=== PATIENT | male | born 1935 | race Caucasian/White ===

== ENCOUNTER 2018-01-02 15:11 | Inpatient (IN) | payer MEDICARE, OTHER ==
--- NOTE | 2018-01-02 16:40 | RAD ---
CHEST ONE VIEW: 01/02/18 HISTORY: Dyspnea. COMPARISON: 03/02/17. FINDINGS: The cardiac silhouette is magnified and upper limits of normal in size. Retrocardiac density has the appearance of the a hiatal hernia. Mediastinum is midline with aortic calcification. Lungs are hyperi nflated. Scattered areas of parenchymal scarring and calcified granulomata are again demonstrated. Th ere is no lobar consolidation or evidence of pneumothorax. Lateral costophrenic angles are excluded f rom the image. IMPRESSION: 1. Hiatal hernia, COPD, and borderline cardiomegaly. Chronic type findings appear stable. 2. Atherosclerosis. POS: HAYDEN
[2018-01-02 16:58] LABS: PTT 24.3 SEC (22.9-36.1); Prothrombin Time 13.5 SEC (12.0-14.7)
[2018-01-02 17:06] LABS: ALT (SGPT) 19 U/L (8-55); AST (SGOT) 28 U/L (5-34); Albumin 4.1 g/dL (3.4-4.8); Alkaline Phosphatase 144 U/L (40-150); Anion Gap 18 mmol/L (10-20); BUN (Urea Nitrogen) 20 mg/dL (8.4-25.7); Bilirubin, Total 0.7 mg/dL (0.2-1.2); CK (CPK) 106 U/L (30-200); Calc. Creatinine Clearance 0 mL/min (70-130); Calcium 9.6 mg/dL (7.8-10.44); Carbon Dioxide 21 mmol/L (23-31); Chloride 97 mmol/L (98-107); Estimated GFR-MDRD Greater than 90; Globulin 3.1 g/dL (2.4-3.5); Glucose 88 mg/dL (83-110); Potassium 4.7 mmol/L (3.5-5.1); Protein, Total 7.2 g/dL (5.8-8.1); Sodium 131 mmol/L (136-145)
[2018-01-02 17:10] LABS: Hemoglobin 14.2 g/dL (14.0-18.0); Mean Corpuscular HGB CONC 32.6 g/dL (32.0-36.0); Mean Corpuscular Hemoglobin 35.6 pg (27.0-31.0); Mean Platelet Volume 7.1 fL (7.4-10.4); Platelet Count 196 thou/uL (130-400); RBC Distribution Width 12.5 % (11.5-14.5); Red Blood Cell (RBC) Count 3.98 mill/uL (4.70-6.10); White Blood Cell (WBC) Count 9.2 thou/uL (4.8-10.8)
--- NOTE | 2018-01-02 17:19 | CT ---
CT BRAIN WITHOUT CONTRAST 01/02/18 HISTORY: Altered mental status. FINDINGS: Comparison is made with exam of 12/22/16. Changes of chronic small vessel ischemic disease are again seen. Cortical atrophy is stable. Ventricu lar size is stable and the basilar cisterns patent. No evidence of acute infarct, hemorrhage, midline shift or abnormal extra-axial fluid collections ar e seen. The bony calvarium is intact. The visualized paranasal sinuses and mastoids air cells are wel l aerated. IMPRESSION: Stable exam. No CT evidence of acute intracranial process. POS: HAYDENH
[2018-01-02 17:32] LABS: #Basophils 0.1 thou/uL (0.0-0.2); #Lymphocytes 1.7 thou/uL (1.20-3.40); #Monocytes 0.3 thou/uL (0.11-0.59); #Neutrophils 7.1 thou/uL (1.40-6.50); %Basophils 0.8 % (0.0-1.0); %Eosinophils 0.3 % (0.0-10.0); %Lymphocytes 18.5 % (21.0-51.0); %Neutrophils 77.4 % (42.0-75.0); Lymphocytes 9 % (21-51); MDiff Complete? YES; Monocytes 6 % (0-10); Neutrophil 85 % (42-75); PLT Morphology Comment Appears Adequate
[2018-01-02 17:34] LABS: CKMB 4.8 ng/mL (0-6.6); Troponin I 0.019 ng/mL (< 0.028)
[2018-01-02] MEDS ORDERED: hydrALAZINE 20 MG/ML VIAL ONE (18:44)
[2018-01-02 18:49] LABS: Bilirubin Small (Negative); Blood, Urine Large (Negative); Clarity CLOUDY (Clear); Glucose, Urine (Dipstick) Negative (Negative); Leukocyte Negative (Negative); Nitrite Negative (Negative); Protein, Urine (Dipstick) 30 mg/dL (Neg-Trace); Specific Gravity, Urine 1.027 (1.002-1.036)
[2018-01-02 18:51] LABS: Bacteria/HPF 1+ HPF (None Seen); Hyaline Casts/LPF 0-3 HYALINE CAST LPF (0-3 Hyaline); Pathc Cast-AUWi Flag 0.27 (0-2.49); RBC/HPF GREATER THAN 50-TNTC HPF (0-3)
[2018-01-02 19:03] LABS: Renal Epithelial None Seen HPF (0-3); Transitional Epithelial 0-3 HPF (0-3)
[2018-01-02] MEDS ORDERED: Ondansetron ODT 4 MG TAB SL PRN (21:47)
[2018-01-02] MEDS ORDERED: Sodium Chloride 0.9% 1,000 ML IV SCH (21:47)
[2018-01-02] MEDS ORDERED: Acetaminophen 325 MG TAB PO PRN ×2 (21:47→22:13)
[2018-01-02] MEDS ORDERED: Ondansetron HCl/PF 4 MG/2 ML Vial IVP PRN (21:47)
[2018-01-02] MEDS ORDERED: cefTRIAXone\\ROCEPHIN 1 GM in Sodium Chloride 0.9% 100 ML IVPB SCH (22:13)
[2018-01-02] MEDS ORDERED: hydrALAZINE 20 MG/ML VIAL SLOW IVP PRN (22:13)
[2018-01-02] MEDS ORDERED: Docusate 100 MG CAP PO SCH (22:30)
[2018-01-02] MEDS ORDERED: Famotidine/PF 20 mg/2ml Vial SLOW IVP SCH (22:30)
[2018-01-02] MEDS ORDERED: ALPRAZolam 0.25 MG TAB PO PRN (23:04)
[2018-01-02] MEDS: Sodium Chloride 0.9% 1,000 ML IV SCH (23:27)
--- NOTE | 2018-01-03 00:52 | HP ---
PRIMARY CARE PHYSICIAN: Dr. Duke Gallegos. CHIEF COMPLAINT: Altered mental status and decreased appetite, oral intake. HISTORY OF PRESENT ILLNESS: Taken primarily from review of the emergency room records thus the patie nt's family has since left and the patient is unable to give me any history. He apparently was broug ht to the hospital due to a decline in mental status. Apparently, he has some history of dementia an d has had some slow decline in function since October, but in the last 2 days it has been worse. It was noted that he has not been eating or drinking in the last couple of days. The ER physician tell s me that he normally can take pills, but when he was trying to take pills earlier, he was basically just kind biting at them like he did not know what to do them. It is also noted that his primary car e physician had been treating him for urinary tract infection about 2 days ago, other than that, is a bout all the history unable to obtain. When I ask the patient how he is doing, he says "just does no t feel good, and feels bad all over." When we tried to ask him to be more specific, he does indicate that he says that in his tummy and points to this midepigastric region. However, it is unclear whet her or not this is reliable or this may have been suggested by myself. Otherwise, no other history i s obtainable. REVIEW OF SYSTEMS: Unobtainable, due to the patient's apparent confusion. PAST MEDICAL HISTORY: Taken from previous record from a history and physical dated on 12/22/[address] Davila and includes transient ischemic attack, dementia, history of SIADH and hyponatremia, hypert ension, deconditioning, diastolic heart dysfunction, and COPD. PAST SURGICAL HISTORY: Includes hernia repair, cataract surgery, prostate surgery, and kyphoplasty. SOCIAL HISTORY: He is a former smoker. FAMILY HISTORY: No history of any known heritable diseases. ALLERGIES: SULFA, SHELLFISH, and TETRACYCLINE. CURRENT MEDICATIONS: These are currently unknown and will need to be reconciled. PHYSICAL EXAMINATION: GENERAL: He appears to be in some distress; however, it is unclear, if it is due to pain or anxiety or dyspnea. He is well-developed and well-nourished. VITAL SIGNS: Blood pressure was 184/90, heart rate 72, respiratory rate of 18, temperature is 97.5. HEENT: Pupils are equal, round, and reactive. Throat: There is no erythema, no exudates. NECK: No adenopathy, no bruits. LUNGS: Clear. No wheezing, no rales. CARDIOVASCULAR: He has a normal S1, S2. I did not appreciate an S3 or S4. No murmurs, clicks, or r ubs. ABDOMEN: Soft, nontender, nondistended. Positive for bowel sounds. EXTREMITIES: There is no edema. NEUROLOGIC: The exam is nonfocal. LABORATORY DATA: Urinalysis is significant for large blood, too numerous to count rbc's, white blood cells are from 11-20,000 and 1+ bacteria. Sodium 131, potassium 4.7, chloride is 97, CO2 is 21, BUN of 20, creatinine 0.74, glucose is 88. White blood cell count is 9.2, hemoglobin 14.2, hematocrit i s 43.5, platelet count is 196. On his chest x-ray is reported as having hiatal hernia, changes assoc iated with chronic obstructive pulmonary disease, otherwise stable. CT scan of the brain was negativ e for any acute intracranial process. ASSESSMENT AND PLAN: This is an 82-year-old gentleman that presents with decreased appetite and oral intake, apparent increase in confusion according to the family, and an elderly gentleman that has a history of some baseline dementia. He was reported to have been treated recently for urinary tract i nfection. It is likely that his symptoms represent a metabolic encephalopathy from a urinary tract i nfection, which has failed outpatient treatment. He will therefore be admitted and started on empiri c therapy for a urinary tract infection including Rocephin and Levaquin. A urine culture will be obt ained. Hopefully, we will obtain some healed; however, it is possible that it could be low yield due to him previously being on antibiotics. We will also get an abdominal ultrasound to look at his gal lbladder, see if there is any evidence of possible cholecystitis, although clinically this does not a ppear apparent. We will also need to reconcile and restart his home medications. Otherwise, no othe r recommendations at this time and further treatment will depend on his clinical course.
[2018-01-03] MEDS: cefTRIAXone\\ROCEPHIN 1 GM, Syringe 0.4 ML in Sterile Water 9.6 ML SLOW IVP SCH ×2 (00:59→20:58)
[2018-01-03 05:22] LABS: #Eosinphils 0.1 thou/uL (0.0-0.7); #Lymphocytes 1.4 thou/uL (1.20-3.40); #Monocytes 0.4 thou/uL (0.11-0.59); #Neutrophils 7.4 thou/uL (1.40-6.50); %Basophils 0.5 % (0.0-1.0); %Eosinophils 0.6 % (0.0-10.0); %Lymphocytes 14.8 % (21.0-51.0); %Monocytes 4.3 % (0.0-10.0); %Neutrophils 79.7 % (42.0-75.0); Hemoglobin 11.8 g/dL (14.0-18.0); Mean Corpuscular HGB CONC 32.5 g/dL (32.0-36.0); Mean Platelet Volume 7.7 fL (7.4-10.4); Platelet Count 186 thou/uL (130-400); RBC Distribution Width 12.5 % (11.5-14.5); Red Blood Cell (RBC) Count 3.39 mill/uL (4.70-6.10); White Blood Cell (WBC) Count 9.2 thou/uL (4.8-10.8)
[2018-01-03 05:31] LABS: Anion Gap 14 mmol/L (10-20); BUN (Urea Nitrogen) 16 mg/dL (8.4-25.7); Calc. Creatinine Clearance 60 mL/min (70-130); Calcium 8.9 mg/dL (7.8-10.44); Carbon Dioxide 23 mmol/L (23-31); Chloride 100 mmol/L (98-107); Estimated GFR-MDRD Greater than 90; Glucose 79 mg/dL (83-110); Potassium 3.9 mmol/L (3.5-5.1); Sodium 133 mmol/L (136-145)
[2018-01-03] MEDS: Famotidine/PF 20 mg/2ml Vial SLOW IVP SCH ×2 (08:43→20:59)
[2018-01-03] MEDS: Enoxaparin Sodium 40 MG/0.4 ML SYRINGE SC SCH (08:43)
--- NOTE | 2018-01-03 09:18 | ULT ---
ULTRASOUND ABDOMEN: HISTORY: Poor appetite. COMPARISON: None. FINDINGS: Visualized aorta is normal as well as the IVC. Visualized portions of the pancreas are unr emarkable. The liver measures 13 cm in length. In the right lobe of the liver anteriorly but in the capsule is a 1 cm hyperechoic focus. The spleen measures 9 x 3.4 x 3.6 cm. Gallbladder wall thickness is normal. The right kidney measures 9.8 x 3.9 x 4.8 cm with mild hydroureteral nephrosis. The left kidney jt ures 10.7 x 4.9 x 4.1 cm also with mild left-sided hydroureteral nephrosis. IMPRESSION: 1. Mild bilateral hydroureteronephrosis may be sequelae of distal obstructing process. A CT of the abdomen and pelvis may be helpful. 2. A 1 cm hyperechoic focus in the right lobe of the liver abutting the capsule. This may reflect h emangioma, although it is incompletely evaluated. A 3-phase liver CT may be beneficial to help delin eate this finding. No prior CTs of the abdomen or pelvis are seen on the patient's comparison jacket . CODE T POS: OFF
[2018-01-03 12:10] VITALS: BMI 19.2
[2018-01-03] MEDS: Docusate 100 MG CAP PO SCH ×2 (12:49→21:05)
[2018-01-03] MEDS: Sodium Chloride 0.9% 1,000 ML IV SCH (12:54)
--- NOTE | 2018-01-03 14:36 | PDOC.PN ---
- Subjective Encounter Start Date: 01/03/18 Encounter Start Time: 14:35 Mr. Patel was seen today in follow-up. He does not have any complaints other than he wants to be left alone - Objective MAR Reviewed: Yes Result Diagrams: 01/03/18 04:16 01/03/18 04:16 Phys Exam - Physical Examination HEENT: PERRLA Respiratory: no wheezing, no rales, no rhonchi, clear to auscultation bilateral Cardiovascular: RRR, no significant murmur Gastrointestinal: soft, non-tender, positive bowel sounds Musculoskeletal: no edema Dx/Plan (1) Metabolic encephalopathy Code(s): G93.41 - METABOLIC ENCEPHALOPATHY Status: Acute (2) UTI (urinary tract infection) Status: Acute (3) Hyponatremia Code(s): E87.1 - HYPO-OSMOLALITY AND HYPONATREMIA Status: Acute Comment: SIADH (4) COPD (chronic obstructive pulmonary disease) Status: Chronic (5) Hypertension Code(s): I10 - ESSENTIAL (PRIMARY) HYPERTENSION Status: Chronic (6) Vascular dementia Code(s): F01.50 - VASCULAR DEMENTIA WITHOUT BEHAVIORAL DISTURBANCE Status: Chronic - Plan * Metabolic Encephalopathy- continue IV antibiotics * Urine culture is negative so far * HTN- blood pressure is a bit elevated- will re-start his home medications * COPD- re-start medications for COPD * Poor oral intake- I suspect some of his symptoms could be due to depression - he is already on Paxil, will increase the dose a bit * Consult Case Management for placement.
[2018-01-03] MEDS: Midodrine HCl 5 MG TAB PO SCH ×2 (17:51→21:05)
[2018-01-03] MEDS: Arformoterol 15 MCG/2 ML NEB NEB SCH (19:18)
[2018-01-03] MEDS: Donepezil HCl 5 MG TAB PO SCH (21:05)
[2018-01-03] MEDS: Aggrenox 200-25mg CAP PO SCH (21:05)
[2018-01-04] MEDS: Sodium Chloride 0.9% 1,000 ML IV SCH ×2 (04:22→17:48)
[2018-01-04] MEDS ORDERED: PARoxetine 20 MG TAB PO SCH (09:00)
[2018-01-04] MEDS: Aggrenox 200-25mg CAP PO SCH ×2 (09:06→20:32)
[2018-01-04] MEDS: PARoxetine 20 MG TAB PO SCH (09:08)
[2018-01-04] MEDS: Aspirin 81 mg Enteric Coated Tablet PO SCH (09:09)
[2018-01-04] MEDS: Docusate 100 MG CAP PO SCH ×2 (09:09→20:33)
[2018-01-04] MEDS: Multivitamin W/ Minerals 1 TAB PO SCH (09:09)
[2018-01-04] MEDS: Famotidine/PF 20 mg/2ml Vial SLOW IVP SCH ×2 (09:10→20:33)
[2018-01-04] MEDS: Midodrine HCl 5 MG TAB PO SCH ×3 (09:11→20:33)
[2018-01-04] MEDS: Enoxaparin Sodium 40 MG/0.4 ML SYRINGE SC SCH (09:11)
[2018-01-04] MEDS: Arformoterol 15 MCG/2 ML NEB NEB SCH ×2 (10:54→18:39)
--- NOTE | 2018-01-04 15:59 | PDOC.PN ---
- Subjective Encounter Start Date: 01/04/18 Encounter Start Time: 15:57 was seen in follow-up. He says he is feeling a little better today. - Objective MAR Reviewed: Yes Vital Signs & Weight: Vital Signs (12 hours) Temp Pulse Resp BP Pulse Ox 01/04/18 15:07 139/72 01/04/18 13:50 97 16 96 01/04/18 11:00 98.6 F 95 20 173/90 H 94 L 01/04/18 10:54 86 16 95 01/04/18 08:00 97.9 F 108 H 18 163/75 H 88 L 01/04/18 07:23 78 15 97 I&O: 01/03/18 01/04/18 01/05/18 06:59 06:59 06:59 Intake Total 1825 Balance 1825 Result Diagrams: 01/03/18 04:16 01/03/18 04:16 Phys Exam - Physical Examination HEENT: PERRLA Respiratory: no wheezing, no rales, no rhonchi, clear to auscultation bilateral Cardiovascular: RRR, no significant murmur Gastrointestinal: soft, non-tender, positive bowel sounds Musculoskeletal: no edema Dx/Plan (1) Metabolic encephalopathy Code(s): G93.41 - METABOLIC ENCEPHALOPATHY Status: Acute (2) UTI (urinary tract infection) Status: Acute (3) Hyponatremia Code(s): E87.1 - HYPO-OSMOLALITY AND HYPONATREMIA Status: Acute Comment: SIADH (4) COPD (chronic obstructive pulmonary disease) Status: Chronic (5) Hypertension Code(s): I10 - ESSENTIAL (PRIMARY) HYPERTENSION Status: Chronic (6) Vascular dementia Code(s): F01.50 - VASCULAR DEMENTIA WITHOUT BEHAVIORAL DISTURBANCE Status: Chronic - Plan * UTI- urine culture is negative- can discontinue antibiotics * Continue to encourage increased oral intake * Depression- Paxil was increased to 30mg a day * Patient is awaiting fdc placement.
[2018-01-04] MEDS ORDERED: Clopidogrel Bisulfate 75 MG TAB ONE (18:47)
[2018-01-04] MEDS: Donepezil HCl 5 MG TAB PO SCH (20:32)
[2018-01-04] MEDS: cefTRIAXone\\ROCEPHIN 1 GM, Syringe 0.4 ML in Sterile Water 9.6 ML SLOW IVP SCH (22:57)
[2018-01-05] MEDS ORDERED: Tamsulosin HCl 0.4 MG CAP PO SCH (02:45)
--- NOTE | 2018-01-05 02:47 | PDOC.EVN ---
Event Note - Event Note Event Note: RN called - Post void >400. Will try Flomax/Finasteride. Abd USG noted. Advised RN to cont Postvoid Q6hr & notify in AM
[2018-01-05] MEDS: Sodium Chloride 0.9% 1,000 ML IV SCH (07:25)
[2018-01-05] MEDS: Finasteride 5 MG TAB PO SCH (09:00)
[2018-01-05] MEDS: Arformoterol 15 MCG/2 ML NEB NEB SCH ×2 (09:38→19:40)
--- NOTE | 2018-01-05 09:56 | PDOC.PN ---
- Subjective Encounter Start Date: 01/05/18 Encounter Start Time: 09:56 Mr. Patel was seen in follow-up. He does not have any complaints. He appears comfortable. - Objective MAR Reviewed: Yes Vital Signs & Weight: Vital Signs (12 hours) Temp Pulse Resp BP Pulse Ox 01/05/18 07:49 98.8 F 95 18 145/81 H 92 L 01/05/18 06:19 85 16 94 L 01/05/18 00:35 81 16 161/72 H 92 L 01/04/18 22:00 95 16 I&O: 01/04/18 01/05/18 01/06/18 06:59 06:59 06:59 Intake Total 1825 1320 Balance 1825 1320 Result Diagrams: 01/03/18 04:16 01/03/18 04:16 Phys Exam - Physical Examination HEENT: PERRLA Respiratory: no wheezing, no rales, no rhonchi, clear to auscultation bilateral Cardiovascular: RRR, no significant murmur Gastrointestinal: soft, non-tender, positive bowel sounds Musculoskeletal: no edema Dx/Plan (1) Metabolic encephalopathy Code(s): G93.41 - METABOLIC ENCEPHALOPATHY Status: Acute (2) UTI (urinary tract infection) Status: Acute (3) Hyponatremia Code(s): E87.1 - HYPO-OSMOLALITY AND HYPONATREMIA Status: Acute Comment: SIADH (4) COPD (chronic obstructive pulmonary disease) Status: Chronic (5) Hypertension Code(s): I10 - ESSENTIAL (PRIMARY) HYPERTENSION Status: Chronic (6) Vascular dementia Code(s): F01.50 - VASCULAR DEMENTIA WITHOUT BEHAVIORAL DISTURBANCE Status: Chronic - Plan * Metabolic encephalopathy- improved * Dementia- stable * Depression in Dementia- Paxil has been increase * Continue to encourage oral intake * Awaiting placement.
[2018-01-05] MEDS: Aggrenox 200-25mg CAP PO SCH ×2 (10:38→21:49)
[2018-01-05] MEDS: Multivitamin W/ Minerals 1 TAB PO SCH (10:38)
[2018-01-05] MEDS: PARoxetine 20 MG TAB PO SCH (10:39)
[2018-01-05] MEDS: Midodrine HCl 5 MG TAB PO SCH ×3 (10:39→21:47)
[2018-01-05] MEDS: Enoxaparin Sodium 40 MG/0.4 ML SYRINGE SC SCH (10:40)
[2018-01-05] MEDS: Famotidine/PF 20 mg/2ml Vial SLOW IVP SCH (10:40)
[2018-01-05] MEDS: Aspirin 81 mg Enteric Coated Tablet PO SCH (10:40)
[2018-01-05] MEDS: Docusate 100 MG CAP PO SCH ×2 (10:43→21:48)
[2018-01-05] MEDS: Donepezil HCl 5 MG TAB PO SCH (21:47)
[2018-01-05] MEDS: Famotidine 20 MG TAB PO SCH (21:47)
[2018-01-05] MEDS: Tamsulosin HCl 0.4 MG CAP PO SCH (21:47)
[2018-01-05] MEDS: cefTRIAXone\\ROCEPHIN 1 GM, Syringe 0.4 ML in Sterile Water 9.6 ML SLOW IVP SCH (22:30)
[2018-01-06] MEDS: Arformoterol 15 MCG/2 ML NEB NEB SCH ×2 (07:52→18:39)
[2018-01-06] MEDS: Multivitamin W/ Minerals 1 TAB PO SCH (08:47)
[2018-01-06] MEDS: Aggrenox 200-25mg CAP PO SCH ×3 (08:48→21:09)
[2018-01-06] MEDS: PARoxetine 20 MG TAB PO SCH (08:49)
[2018-01-06] MEDS: Midodrine HCl 5 MG TAB PO SCH ×3 (08:50→21:10)
[2018-01-06] MEDS: Docusate 100 MG CAP PO SCH ×2 (08:53→21:09)
[2018-01-06] MEDS: Enoxaparin Sodium 40 MG/0.4 ML SYRINGE SC SCH (08:53)
[2018-01-06] MEDS: Aspirin 81 mg Enteric Coated Tablet PO SCH (08:53)
[2018-01-06] MEDS: Famotidine 20 MG TAB PO SCH ×2 (08:53→21:09)
[2018-01-06] MEDS: Finasteride 5 MG TAB PO SCH (11:30)
--- NOTE | 2018-01-06 13:45 | PDOC.PN ---
- Subjective Encounter Start Date: 01/06/18 Encounter Start Time: 13:43 Mr. Patel was seen today in follow-up. He appears comfortable. He is sitting up in bed smiling and conversation is pleasant. - Objective MAR Reviewed: Yes Vital Signs & Weight: Vital Signs (12 hours) Temp Pulse Resp BP Pulse Ox 01/06/18 08:00 98 F 89 16 01/06/18 07:53 89 16 98 01/06/18 07:52 89 16 98 01/06/18 07:33 98.0 F 94 18 174/88 H 92 L 01/06/18 04:04 97 Weight Admit Weight 110 lb 3.2 oz Weight 112 lb 3.2 oz I&O: 01/05/18 01/06/18 01/07/18 06:59 06:59 06:59 Intake Total 1320 600 Output Total 1389 Balance 1320 -789 Result Diagrams: 01/03/18 04:16 01/03/18 04:16 Phys Exam - Physical Examination HEENT: PERRLA Respiratory: no wheezing, no rales, no rhonchi, clear to auscultation bilateral Cardiovascular: RRR, no significant murmur Gastrointestinal: soft, non-tender, positive bowel sounds Musculoskeletal: no edema Dx/Plan (1) Metabolic encephalopathy Code(s): G93.41 - METABOLIC ENCEPHALOPATHY Status: Acute (2) UTI (urinary tract infection) Status: Acute (3) Hyponatremia Code(s): E87.1 - HYPO-OSMOLALITY AND HYPONATREMIA Status: Acute Comment: SIADH (4) COPD (chronic obstructive pulmonary disease) Status: Chronic (5) Hypertension Code(s): I10 - ESSENTIAL (PRIMARY) HYPERTENSION Status: Chronic (6) Vascular dementia Code(s): F01.50 - VASCULAR DEMENTIA WITHOUT BEHAVIORAL DISTURBANCE Status: Chronic - Plan * Metabolic encephalopathy- resolved * UTI- resolved * Depression- appears to be a little improved with increased dose of Paxil * Continue to encourage oral inake * Continue PT/OT * Awaiting retirement placement.
[2018-01-06] MEDS: Donepezil HCl 5 MG TAB PO SCH (21:09)
[2018-01-06] MEDS: Tamsulosin HCl 0.4 MG CAP PO SCH (21:09)
[2018-01-07] MEDS ORDERED: hydrALAZINE 10 MG TAB PO PRN (00:37)
[2018-01-07] MEDS: cefTRIAXone\\ROCEPHIN 1 GM, Syringe 0.4 ML in Sterile Water 9.6 ML SLOW IVP SCH (01:43)
[2018-01-07] MEDS: Arformoterol 15 MCG/2 ML NEB NEB SCH ×2 (06:52→22:17)
[2018-01-07] MEDS: Aggrenox 200-25mg CAP PO SCH ×2 (08:40→21:05)
[2018-01-07] MEDS: Enoxaparin Sodium 40 MG/0.4 ML SYRINGE SC SCH (08:40)
[2018-01-07] MEDS: Midodrine HCl 5 MG TAB PO SCH ×3 (08:43→21:05)
[2018-01-07] MEDS: PARoxetine 20 MG TAB PO SCH (08:45)
[2018-01-07] MEDS: Famotidine 20 MG TAB PO SCH ×2 (08:45→21:05)
[2018-01-07] MEDS: Aspirin 81 mg Enteric Coated Tablet PO SCH (08:48)
[2018-01-07] MEDS: Multivitamin W/ Minerals 1 TAB PO SCH (08:48)
[2018-01-07] MEDS: Finasteride 5 MG TAB PO SCH (08:49)
[2018-01-07] MEDS: Docusate 100 MG CAP PO SCH ×2 (08:50→21:05)
--- NOTE | 2018-01-07 12:02 | PDOC.PN ---
- Subjective Encounter Start Date: 01/07/18 Encounter Start Time: 11:59 Mr. Patel was seen today in follow-up. When asked how's he doing he tells me " I 'm Here". He does not have any specific complaints. His nurse notes that he was a bit agitated, and refused his morning medications. - Objective MAR Reviewed: Yes Vital Signs & Weight: Vital Signs (12 hours) Temp Pulse Resp BP BP Pulse Ox 01/07/18 08:36 98.4 F 92 18 181/91 H 90 L 01/07/18 08:00 98.4 F 92 18 01/07/18 06:50 75 16 94 L 01/07/18 06:22 85 181/91 H 01/07/18 04:00 85 177/90 H 01/07/18 02:51 85 181/91 H Weight Admit Weight 110 lb 3.2 oz Weight 112 lb 3.2 oz I&O: 01/06/18 01/07/18 01/08/18 06:59 06:59 06:59 Intake Total 600 240 Output Total 1389 Balance -789 240 Result Diagrams: 01/03/18 04:16 01/03/18 04:16 Phys Exam - Physical Examination HEENT: PERRLA Respiratory: no wheezing, no rales, no rhonchi Cardiovascular: RRR, no significant murmur Gastrointestinal: soft, non-tender, positive bowel sounds Musculoskeletal: no edema Dx/Plan (1) Metabolic encephalopathy Code(s): G93.41 - METABOLIC ENCEPHALOPATHY Status: Acute (2) UTI (urinary tract infection) Status: Acute (3) Hyponatremia Code(s): E87.1 - HYPO-OSMOLALITY AND HYPONATREMIA Status: Acute Comment: SIADH (4) COPD (chronic obstructive pulmonary disease) Status: Chronic (5) Hypertension Code(s): I10 - ESSENTIAL (PRIMARY) HYPERTENSION Status: Chronic (6) Vascular dementia Code(s): F01.50 - VASCULAR DEMENTIA WITHOUT BEHAVIORAL DISTURBANCE Status: Chronic - Plan * UTI- resolved * Metabolic Encephalopathy- improved * Dementia- stable * Depression continue Paxil * Awaiting placement.
[2018-01-07] MEDS ORDERED: Amlodipine 5 MG TAB PO SCH (14:00)
[2018-01-07] MEDS: Donepezil HCl 5 MG TAB PO SCH (21:05)
[2018-01-07] MEDS: Tamsulosin HCl 0.4 MG CAP PO SCH (21:05)
[2018-01-08] MEDS: Arformoterol 15 MCG/2 ML NEB NEB SCH ×2 (07:42→18:47)
[2018-01-08] MEDS: Enoxaparin Sodium 40 MG/0.4 ML SYRINGE SC SCH (09:28)
[2018-01-08] MEDS: Aspirin 81 mg Enteric Coated Tablet PO SCH (09:29)
[2018-01-08] MEDS: PARoxetine 20 MG TAB PO SCH (09:29)
[2018-01-08] MEDS: Finasteride 5 MG TAB PO SCH (09:30)
[2018-01-08] MEDS: Docusate 100 MG CAP PO SCH ×2 (09:30→20:54)
[2018-01-08] MEDS: Amlodipine 5 MG TAB PO SCH (09:30)
[2018-01-08] MEDS: Famotidine 20 MG TAB PO SCH ×2 (09:32→20:54)
[2018-01-08] MEDS: Multivitamin W/ Minerals 1 TAB PO SCH (09:32)
[2018-01-08] MEDS: Midodrine HCl 5 MG TAB PO SCH ×3 (09:32→20:54)
[2018-01-08] MEDS: Aggrenox 200-25mg CAP PO SCH ×2 (09:37→20:54)
--- NOTE | 2018-01-08 14:44 | PDOC.PN ---
- Subjective Encounter Start Date: 01/08/18 Encounter Start Time: 14:42 Mr. Patel was seen today in follow-up. He has been sleepy most of the day. His oral intake has been marginal. - Objective MAR Reviewed: Yes Vital Signs & Weight: Vital Signs (12 hours) Pulse Resp Pulse Ox 01/08/18 09:30 90 01/08/18 07:42 90 15 98 01/08/18 07:21 80 15 95 Weight Admit Weight 110 lb 3.2 oz Weight 112 lb 3.2 oz I&O: 01/07/18 01/08/18 01/09/18 06:59 06:59 06:59 Intake Total 240 480 Balance 240 480 Result Diagrams: 01/03/18 04:16 01/03/18 04:16 Phys Exam - Physical Examination HEENT: PERRLA Respiratory: no wheezing, no rales, no rhonchi, clear to auscultation bilateral Cardiovascular: RRR, no significant murmur, no rub Gastrointestinal: soft, non-tender, positive bowel sounds Musculoskeletal: no edema Dx/Plan (1) Metabolic encephalopathy Code(s): G93.41 - METABOLIC ENCEPHALOPATHY Status: Acute (2) UTI (urinary tract infection) Status: Acute (3) Hyponatremia Code(s): E87.1 - HYPO-OSMOLALITY AND HYPONATREMIA Status: Acute Comment: SIADH (4) COPD (chronic obstructive pulmonary disease) Status: Chronic (5) Hypertension Code(s): I10 - ESSENTIAL (PRIMARY) HYPERTENSION Status: Chronic (6) Vascular dementia Code(s): F01.50 - VASCULAR DEMENTIA WITHOUT BEHAVIORAL DISTURBANCE Status: Chronic - Plan * Metabolic Encephalopathy- improved * UTI- resolved * Poor oral intake- suspected due to Dementia, and Depression- Paxil has been increased, and will add Megace as well * Continue PT/OT * Awaiting Intermediate transfer.
[2018-01-08] MEDS: Tamsulosin HCl 0.4 MG CAP PO SCH (20:54)
[2018-01-08] MEDS: Donepezil HCl 5 MG TAB PO SCH (20:54)
[2018-01-09 07:38] VITALS: BP 147/83
[2018-01-09] MEDS: Amlodipine 5 MG TAB PO SCH (08:20)
[2018-01-09] MEDS: Enoxaparin Sodium 40 MG/0.4 ML SYRINGE SC SCH (08:20)
[2018-01-09] MEDS: PARoxetine 20 MG TAB PO SCH (08:21)
[2018-01-09] MEDS: Aspirin 81 mg Enteric Coated Tablet PO SCH (08:21)
[2018-01-09] MEDS: Docusate 100 MG CAP PO SCH (08:21)
[2018-01-09] MEDS: Multivitamin W/ Minerals 1 TAB PO SCH (08:21)
[2018-01-09] MEDS: Midodrine HCl 5 MG TAB PO SCH ×2 (08:22→14:54)
[2018-01-09] MEDS: Famotidine 20 MG TAB PO SCH (08:22)
[2018-01-09] MEDS: Arformoterol 15 MCG/2 ML NEB NEB SCH (08:23)
[2018-01-09] MEDS: Aggrenox 200-25mg CAP PO SCH (08:26)
[2018-01-09] MEDS: Finasteride 5 MG TAB PO SCH (08:26)
[2018-01-09 10:37] VITALS: TEMP 98.3
--- NOTE | 2018-01-09 13:50 | DIS ---
PRIMARY CARE PHYSICIAN: Duke Gallegos M.D. DATE OF ADMISSION: 01/02/2018 DATE OF DISCHARGE: 01/09/2018 DISCHARGE DIAGNOSES: 1. Metabolic encephalopathy. 2. Urinary tract infection. 3. Dementia without behavioral disturbance. 4. Major depressive disorder. 5. Failure to thrive. 6. Moderate to severe protein-calorie malnutrition. 7. Physical deconditioning. 8. Chronic obstructive pulmonary disease without acute exacerbation. 9. Essential hypertension. CONSULTATIONS: None. PROCEDURES: None. HISTORY AND PHYSICAL: Mr. Patel is a 89-year-old white male, brought into the emergency department d ue to altered mental status, decreased appetite, and decline. The patient has dementia and was functioning and decreasing on a regular basis since October, but nunez s been worse 2 days prior to admission. He was brought to the emergency department for evaluation. Not eating or drinking, but was unable to take his pills any longer. On evaluation, urinalysis showed too numerous to count red blood cells, 11-20 white blood cells, 1+ b acteria, and sodium is 131. We were subsequently called for admission. HOSPITAL COURSE: The patient was seen and examined by Dr. Escobar. He was placed inpatient and start ed on antibiotics and IV fluids. Initially he was receiving Rocephin and Levaquin. Abdominal ultras ound was obtained to look at the gallbladder due to increased LFTs. Overnight, the patient did well. Ultrasound was negative and by 01/03/2018, the patient was not havi ng complaints other than wanting to be left alone. Overall, seemed a little bit improved and certain ly stable. software development project manager was consulted for placement issues. On 01/04/2018, the patient was feeling a little better. Urine culture was negative and antibiotics w ere stopped. He was encouraged to take p.o. intake. PT/OT consults were ordered. Overnight, the patient had a postvoid residual of 400. Flomax and finasteride were ordered and the p atient had a heart catheterization and otherwise did well. From 01/05 to 01/08, the patient slowly improved. He was eating better when I encouraged. He is wor royce with PT and OT. A daughter finally picked a skilled nurse facility for rehabilitation and placement. Today, 01/09/2018, the patient was back prior to his baseline, is eating better. He was approved at [facility] and stable for discharge for rehabilitation. PHYSICAL EXAMINATION: The patient was seen and examined on the day of discharge. Discharge plan and disposition were discussed with the daughter [id number] at the bedside. DISCHARGE MEDICATIONS: 1. Tylenol 650 mg p.o. q.4 hours p.r.n. 2. Amlodipine 5 mg daily. 3. Formoterol/Brovana 1 puff inhaled b.i.d. 4. Aggrenox 225/200 one p.o. b.i.d. 5. Aspirin 81 mg daily. 6. Donepezil 5 mg p.o. at bedtime. 7. Proscar 5 mg p.o. daily. 8. Hydralazine 10 mg p.o. q.4 hours p.r.n. systolic pressure greater than 180. 9. DuoNeb q.8 hours. 10. Lactulose 10 grams p.o. p.r.n. constipation daily. 11. Midodrine 10 mg p.o. t.i.d. 12. Multivitamin daily. 13. Paxil 20 mg p.o. daily. 14. Flomax 0.4 mg p.o. at bedtime. 15. Ampicillin 250 mg p.o. q.i.d. to be discontinued. 16. Docusate 100 mg p.o. daily. 17. Magnesium hydroxide 30 mL p.o. q.i.d. p.r.n. constipation. 18. Zofran 4 mg p.o. q.4 hours p.r.n. nausea. DISCHARGE CONDITION: Stable. DISPOSITION: Will be discharged to [facility]. DISCHARGE ACTIVITY: As tolerated. DISCHARGE DIET: Pureed and honey thickened liquids, mighty shakes b.i.d. The patient will be need t o be fed and encouraged to eat. FOLLOWUP APPOINTMENTS: Primary care physician within a week.
== END 2018-01-09 18:02 | DRG 689 ==
LOC: ERS 15:11 → T4-A 18:30 → OBSVTOIN 01-03 13:08
PROVIDERS: ADMIT Internal Medicine; ATTEND Internal Medicine
DX: N39.0 Urinary tract infection, site not specified (principal); G93.41 Metabolic encephalopathy; E43 Unspecified severe protein-calorie malnutrition; E22.2 Syndrome of inappropriate secretion of antidiuretic hormone; F01.50 Vascular dementia, unspecified severity, without behavioral disturbance, psychotic disturbance, mood disturbance, and anxiety; J44.9 Chronic obstructive pulmonary disease, unspecified; E86.0 Dehydration; Z68.1 Body mass index [BMI] 19.9 or less, adult; R39.198 Other difficulties with micturition; F32.9 Major depressive disorder, single episode, unspecified; R62.7 Adult failure to thrive; I10 Essential (primary) hypertension; Z87.891 Personal history of nicotine dependence
CPT/HCPCS: 36415; 51701; 70450; 71045; 76700; 80048; 80053; 81003; 81015; 82550; 82553; 83880; 84484; 85025; 85610; 85730; 87086; 93005; 94640; 94760; 96361; 96374; A4216; G8978-GP-CL; G8979-GP-CK; G8987-GO-CN; G8988-GO-CL; G8996-GN-CL; G8996-GN-CM; G8997-GN-CL; G8997-GN-CM; J0360; J0696; J1650; J1956; J7620; S0028

== ENCOUNTER 2018-06-04 07:53 | Inpatient (IN) | payer MEDICARE, OTHER ==
[2018-06-04 08:34] LABS: #Lymphocytes 1.1 thou/uL (1.20-3.40); #Monocytes 0.3 thou/uL (0.11-0.59); #Neutrophils 8.8 thou/uL (1.40-6.50); %Basophils 0.1 % (0.0-1.0); %Eosinophils 0.4 % (0.0-10.0); %Lymphocytes 10.4 % (21.0-51.0); %Monocytes 3.1 % (0.0-10.0); Hemoglobin 11.1 g/dL (14.0-18.0); Mean Corpuscular HGB CONC 31.5 g/dL (32.0-36.0); Mean Corpuscular Hemoglobin 34.5 pg (27.0-31.0); Platelet Count 189 thou/uL (130-400); RBC Distribution Width 12.9 % (11.5-14.5); Red Blood Cell (RBC) Count 3.21 mill/uL (4.70-6.10); White Blood Cell (WBC) Count 10.3 thou/uL (4.8-10.8)
[2018-06-04 08:45] LABS: ALT (SGPT) 26 U/L (8-55); AST (SGOT) 23 U/L (5-34); Albumin 3.7 g/dL (3.4-4.8); Alkaline Phosphatase 132 U/L (40-150); Anion Gap 9 mmol/L (10-20); BUN (Urea Nitrogen) 21 mg/dL (8.4-25.7); Bilirubin, Total 0.3 mg/dL (0.2-1.2); Calc. Creatinine Clearance 0 mL/min (70-130); Calcium 9.3 mg/dL (7.8-10.44); Carbon Dioxide 35 mmol/L (23-31); Chloride 99 mmol/L (98-107); Estimated GFR-MDRD Greater than 90; Globulin 3.2 g/dL (2.4-3.5); Glucose 119 mg/dL (83-110); Potassium 4.1 mmol/L (3.5-5.1); Protein, Total 6.9 g/dL (5.8-8.1); Sodium 139 mmol/L (136-145)
[2018-06-04 08:47] LABS: CKMB 3.1 ng/mL (0-6.6); Troponin I Less than 0.010 ng/mL (< 0.028)
[2018-06-04 09:15] LABS: MDiff Complete? YES; Macrocytosis SLIGHT = 6-15 cells (100X) (0-5/hpf); PLT Morphology Comment Appears Adequate
[2018-06-04] MEDS ORDERED: Azithromycin 250 MG TAB ONE (10:05)
[2018-06-04] MEDS ORDERED: predniSONE 20 MG TAB ONE (10:05)
--- NOTE | 2018-06-04 10:18 | RAD ---
AP VIEW CHEST: INDICATIONS: Difficulty breathing this morning with history of COPD. COMPARISON: Prior chest radiograph, dated 01/02/2018. FINDINGS: Again seen is a large hiatal hernia, containing loops of bowel and stomach. There is stable severe C OPD change. Cardiomegaly is similar. Vascular calcifications are similar. No definite focal consol idation, pleural effusion, or pneumothorax is evident. Chronic osseous changes are stable. IMPRESSION: Stable chronic changes, as above. No definite acute cardiopulmonary abnormality demonstrated. POS: HAYDEN
[2018-06-04 10:37] LABS: Bilirubin Negative (Negative); Blood, Urine Moderate (Negative); Clarity CLOUDY (Clear); Glucose, Urine (Dipstick) Negative (Negative); Leukocyte Moderate (Negative); Nitrite Negative (Negative); Protein, Urine (Dipstick) 30 mg/dL (Neg-Trace); Specific Gravity, Urine 1.021 (1.002-1.036); pH, Urine 6.5 (5.0-9.0)
[2018-06-04 10:40] LABS: Bacteria/HPF 4+ HPF (None Seen); Pathc Cast-AUWi Flag 0.29 (0-2.49); RBC/HPF 21-50 HPF (0-3); Squamous Epithelial None Seen HPF (0-3)
[2018-06-04 10:46] LABS: Hyaline Casts/LPF 0-3 HYALINE CAST LPF (0-3 Hyaline)
[2018-06-04] MEDS ORDERED: cefTRIAXone\\ROCEPHIN 2 GM VIAL ONE (14:11)
[2018-06-04] MEDS ORDERED: Sodium Chloride 0.9% 100 ML ONE (14:12)
[2018-06-04 14:28] LABS: Actual Bicarbonate (HCO3a) 31.8 mEq/L (22-28); Base Excess (BEa) 5.7 mEq/L (-2.0 to +3.0); CO2 Tension 54.6 mmHg (35.0-45.0); Hematocrit-ABG 35.2 % (42.0-52.0); O2 Tension (PaO2) 62.5 mmHg (> 60.0); pH, Arterial 7.38 (7.35-7.45)
[2018-06-04 14:29] LABS: Analyzer IN Cardio ER; Calcium, Ionized 1.2 mmol/L (1.12-1.30); Hemoglobin (Hb) 10.2 g/dL (14.0-18.0); Puncture Site RRA
[2018-06-04] MEDS ORDERED: Albuterol Sulfate 2.5 mg/3 ml Neb NEB PRN (15:33)
[2018-06-04] MEDS ORDERED: Acetaminophen 500 MG TAB PO PRN (18:16)
[2018-06-04] MEDS ORDERED: Ondansetron ODT 4 MG TAB PO PRN (18:16)
[2018-06-04] MEDS ORDERED: cloNIDine 0.1 MG TAB PO PRN (18:16)
[2018-06-04] MEDS ORDERED: Ondansetron HCl/PF 4 MG/2 ML Vial IVP PRN (18:16)
[2018-06-04] MEDS ORDERED: hydrALAZINE 20 MG/ML VIAL SLOW IVP PRN (18:16)
[2018-06-04] MEDS: Famotidine 20 MG TAB PO SCH (20:04)
--- NOTE | 2018-06-05 00:02 | HP ---
DATE OF ADMISSION: 06/04/2018 PRIMARY CARE PROVIDER: Dr. Duke Gallegos. CHIEF COMPLAINT: Passing out and shortness of breath. HISTORY OF PRESENT ILLNESS: This is an 83-year-old male who presents to [facility] Emergency Department after apparently sustaining a syncopal episode while getting lesli ssed to go to breakfast at [facility]. The patient states he was being assisted by skilled nursing personnel when he apparently passed out. The patient was checked for pulse oximetry noting 69% on room air. The patient with longstanding history of chronic hypoxic respiratory failure on oxygen supplementation at 2-4 liters per minute by nasal cannula due to chronic obstructive pulmo nary disease. The patient denies any head injury, unilateral weakness, difficulty with speech, but h ad some confusion corroborated by the daughter at the bedside. No specific change to chronic medicat ion regimen, travel history or known sick contacts. The patient had also complained of increased jody rtness of breath in the context of known COPD, but states he has been compliant with his chronic inha lers. In the emergency room, patient underwent general evaluation including chest imaging showing ch anges consistent with severe COPD. No acute infiltrates identified. The patient received Rocephin, Zithromax and prednisone as well as DuoNeb therapy and intravenous normal saline. The patient was tr ansferred to the telemetry unit for further evaluation. PAST MEDICAL HISTORY: 1. Chronic hypoxic respiratory failure with chronic oxygen supplementation at 2-3 liters per minute by nasal cannula. 2. Hypertension. 3. Orthostatic hypotension. 4. History of metabolic encephalopathy secondary to urinary tract infection. 5. Deconditioning with nonambulatory status. 6. Major depressive disorder. 7. Moderate protein calorie malnutrition. PAST SURGICAL HISTORY: 1. Status post hernia repair. 2. Status post cataract removal. 3. Status post prostate surgery. 4. Status post kyphoplasty. CURRENT MEDICATIONS: Based on previous admission in 2018. 1. Amlodipine 5 mg one tablet p.o. daily. 2. Brovana 1 puff inhaled b.i.d. 3. Aspirin enteric coated 81 mg p.o. daily. 4. Aggrenox 1 capsule p.o. b.i.d. 5. Aricept 5 mg p.o. at bedtime. 6. Proscar 5 mg p.o. daily. 7. Ipratropium/albuterol 3 mL nebulized q.8 hours p.r.n. 8. Midodrine 10 mg p.o. t.i.d. 9. Multivitamin 1 tab p.o. daily. 10. Paxil 20 mg p.o. daily. 11. Flomax 0.4 mg p.o. daily. ALLERGIES: SHELLFISH, SULFA, TETRACYCLINE. FAMILY HISTORY: No inheritable diseases per family report. SOCIAL HISTORY: The patient has remote tobacco use. Occasional alcohol use. No illicit drug use. Resides at [facility]. Nonambulatory currently needing assistance with transfers into a wheelchair. Retired. Worked in the [email or web address] division with the department of the [employer]. REVIEW OF SYSTEMS: The following complete review of systems was negative, unless otherwise mentioned in the HPI or below: Constitutional: Weight loss or gain, ability to conduct usual activities. Skin: Rash, itching. Eyes: Double vision, pain. ENT/Mouth: Nose bleeding, neck stiffness, pain, tenderness. Cardiovascular: Palpitations, dyspnea on exertion, orthopnea. Respiratory: Shortness of breath, wheezing, cough, hemoptysis, fever or night sweats. Gastrointestinal: Poor appetite, abdominal pain, heartburn, nausea, vomiting, constipation, or diarr hea. Genitourinary: Urgency, frequency, dysuria, nocturia. Musculoskeletal: Pain, swelling. Neurologic/Psychiatric: Anxiety, depression. Allergy/Immunologic: Skin rash, bleeding tendency. Otherwise negative except as stated per HPI. PHYSICAL EXAMINATION: VITAL SIGNS: On admission, blood pressure 140/82, pulse 83, respiratory rate 24, temperature 97.8 de grees Fahrenheit, O2 saturation 94% on 4 liters per minute by nasal cannula. GENERAL APPEARANCE: This is an 83-year-old male, alert and oriented x3, pleasant, conversa nt, in mild respiratory distress. HEENT: Pupils are equal, round, and reactive to light and accommodation. Extraocular muscles are in tact. No scleral icterus, no conjunctival injection. Nares patent. OP is clear. Teeth in fair rep air. NECK: Supple, no cervical adenopathy, no thyromegaly, no carotid bruits, no JVD appreciated. Cervic al spine with full active and passive range of motion. No meningeal signs appreciated. CHEST: Diminished breath sounds in bibasilar grande with expiratory wheezes. CARDIOVASCULAR: S1 and S2 with distant heart sounds. No murmur, rub or gallop appreciated. ABDOMEN: Rounded, soft, nontender and nondistended. Bowel sounds are positive in all four quadrants . There is no hepatosplenomegaly, no abdominal bruits, no rebound or guarding appreciated. EXTREMITIES: Warm and dry with fair turgor. Mild edema to the lower extremities and ankle region. Pulses palpable distally at the dorsalis pedis, posterior tibial and popliteal arteries bilaterally. Capillary refill less than 2 seconds. NEUROLOGIC: Cranial nerves II-XII are grossly intact. No focal or lateralizing signs appreciated. PERTINENT LABORATORY DATA AND X-RAY FINDINGS: Sodium 139, potassium 4.1, chloride 99, CO2 of 35, BUN 21, creatinine 0.72, estimated GFR greater than 90, glucose 119. LFTs within normal limits. BNP 30 3. Troponin negative x1. CBC showed a white blood cell count of 10.3, hemoglobin 11, hematocrit 35, MCV 109, platelet count 189 with 86% neutrophils. ABG dated 06/04/2018 showed pH of 7.38, pCO2 of 5 5, pO2 of 63, bicarbonate of 32, O2 saturation 92% on 4 liters per minute by nasal cannula. Portable chest x-ray dated 06/04/2018 showed chronic changes consistent with chronic obstructive pulmonary di sease. No acute infiltrate is identified. Telemetry monitoring shows sinus mechanism with heart rat es in the 70s-80s. ASSESSMENT AND PLAN: 1. Acute on chronic obstructive pulmonary disease exacerbation. The patient will be admitted to the telemetry unit. We will continue DuoNebs q.4 hours. Add Solu-Medrol 40 mg IV q.6 hours. Continue Rocephin 2 grams IV q.24 hours with additional Zithromax 250 mg p.o. daily. Continue oxygen suppleme ntation to maintain O2 saturations greater than or equal to 90%. 2. Acute on chronic hypoxic hypercapnic respiratory failure. See #1 above. Continue to titrate oxy gen to clinical response. 3. Syncope. Suspect multifactorial in conjunction with hypoxia and hypercapnia. No evidence to sug gest acute neurological event. We will continue general supportive measures for pulmonary status as stated previously. Check orthostatic vital signs. PT evaluation for functional assessment and ambul atory status. 4. Severe deconditioning. PT evaluation for functional assessment. General fall risk precautions. 5. Hypertension. We will continue home antihypertensive regimen and monitor clinical response. 6. Prophylaxis. Sequential compression devices while in bed. Pepcid 20 mg p.o. b.i.d. PT evaluati on. 7. Code status is FULL. Surrogate medical decision maker is patient's daughter.
[2018-06-05 05:42] LABS: Anion Gap 11 mmol/L (10-20); BUN (Urea Nitrogen) 20 mg/dL (8.4-25.7); Calc. Creatinine Clearance 66 mL/min (70-130); Calcium 9.2 mg/dL (7.8-10.44); Carbon Dioxide 32 mmol/L (23-31); Chloride 98 mmol/L (98-107); Estimated GFR-MDRD Greater than 90; Glucose 133 mg/dL (83-110); Potassium 4.3 mmol/L (3.5-5.1); Sodium 137 mmol/L (136-145)
[2018-06-05 06:06] LABS: Band 2 % (5-11); Hemoglobin 10.7 g/dL (14.0-18.0); Lymphocytes 8 % (21-51); MDiff Complete? YES; Mean Corpuscular Hemoglobin 34.5 pg (27.0-31.0); Mean Platelet Volume 7.5 fL (7.4-10.4); Monocytes 1 % (0-10); Neutrophil 89 % (42-75); Platelet Count 179 thou/uL (130-400); RBC Distribution Width 12.8 % (11.5-14.5); White Blood Cell (WBC) Count 10.3 thou/uL (4.8-10.8)
[2018-06-05] MEDS: Famotidine 20 MG TAB PO SCH ×2 (08:10→19:58)
[2018-06-05] MEDS ORDERED: Azithromycin 250 MG TAB PO SCH (09:00)
[2018-06-05] MEDS ORDERED: predniSONE 20 MG TAB PO SCH (13:00)
[2018-06-05] MEDS: cefTRIAXone\\ROCEPHIN 2 GM, Admixture Fee 1 EACH in Sodium Chloride 0.9% 100 ML IVPB SCH (13:42)
[2018-06-05] MEDS: Saccharomyces boulardii 250 MG CAP PO SCH (19:58)
--- NOTE | 2018-06-05 22:44 | PDOC.PN ---
- Subjective Encounter Start Date: 06/05/18 Encounter Start Time: 09:30 Still has some respiratory issues, but believes he is slightly better. - Objective Resuscitation Status: Resuscitation Status FULL:Full Resuscitation Vital Signs & Weight: Vital Signs (12 hours) Temp Pulse Pulse Pulse Resp BP BP 06/05/18 20:35 86 24 H 06/05/18 19:46 97.6 F 86 24 H 06/05/18 16:14 97.8 F 71 20 06/05/18 14:43 95 80 172/83 H 165/78 H 06/05/18 11:52 97.4 F L 67 20 BP BP BP BP Pulse Ox Pulse Ox Pulse Ox 06/05/18 20:35 06/05/18 19:46 170/90 H 169/93 H 171/86 H 92 L 06/05/18 16:14 189/99 H 98 06/05/18 14:43 85 L 85 L 06/05/18 11:52 169/86 H 98 Weight Admit Weight 113 lb 12.8 oz Weight 113 lb 12.8 oz I&O: 06/04/18 06/05/18 06/06/18 06:59 06:59 06:59 Intake Total 470 1197 Balance 470 1197 Result Diagrams: 06/05/18 04:19 06/05/18 04:19 Phys Exam - Physical Examination Constitutional: NAD Respiratory: no wheezing Diffuse scattered rales. Cardiovascular: RRR, no significant murmur Gastrointestinal: soft, non-tender, no distention Musculoskeletal: no edema Psychiatric: normal affect Dx/Plan (1) UTI (urinary tract infection) Status: Acute (2) COPD (chronic obstructive pulmonary disease) Status: Chronic (3) Vascular dementia Code(s): F01.50 - VASCULAR DEMENTIA WITHOUT BEHAVIORAL DISTURBANCE Status: Chronic - Plan * Continue Rocephin and follow up on the urine cultures. Stop Azithro as there is no evidence of pneumonia. Repeat CXR in am. Continue nebs, steroids, oxygen.
--- NOTE | 2018-06-05 22:49 | PDOC.EVN ---
Event Note - Event Note Event Note: Discussed advanced care planning with the patient and his daughter. He is currently a full code, but has underlying dementia. I explained the end-stage nature of his COPD. He is requiring more than 2 lpm NC to maintain sats on a daily basis. His lungs are such that he would not likely ever come off of a vent if he were to be intubated. The patient's daughter does not necessarily agree with the current code status, but is not prepared to change that at this time. Will consult the Palliative Care team to help the patient and the family clarify the goals of care. Time spent 18 minutes.
--- NOTE | 2018-06-06 07:46 | RAD ---
CHEST 1 VIEW: Date: 06/06/18 HISTORY: 83-year-old male with history of COPD. COMPARISON: 06/04/18. FINDINGS: Minimal cardiomegaly. Prominent increased linear, interstitial, and reticulonodular parenchymal castelan es bilaterally, somewhat more focally prominent in the right upper lobe and left lower lobe and infra hilar region. Evidence for large hiatal hernia. IMPRESSION: Stable chronic interstitial and reticulonodular parenchymal changes with cardiomegaly and a large hia binh hernia. No new confluent process or overt edema. POS: [facility]
[2018-06-06] MEDS: Saccharomyces boulardii 250 MG CAP PO SCH ×2 (09:36→21:39)
[2018-06-06] MEDS: Famotidine 20 MG TAB PO SCH ×2 (09:36→21:39)
--- NOTE | 2018-06-06 12:45 | PQF ---
DATE: 06-06-18 ATTN: DR. EZEQUIEL BHATTI Please exercise your independent, professional judgment in responding to the clarification form. Clinical indicators are provided on the bottom of this form for your review Please check appropriate box(s): Conflicting documentation was noted in the Medical Record, please clarify if patient is being treated/monitored for: [x] ACUTE ON CHRONIC OBSTRUCTIVE PULMONARY DISEASE EXACERBATION [ ] CHRONIC COPD [ ] Other diagnosis [ ] Unable to determine In addition, please specify: Present on Admission (POA): [x] Yes [ ] No [ ] Unable to determine For continuity of documentation, please document condition throughout progress notes and discharge summary. Thank You. CLINICAL INDICATORS - SIGNS / SYMPTOMS/ LABS ER DX: COPD EXACERBATION, UTI H&P: ACUTE ON CHRONIC OBSTRUCTIVE PULMONARY DISEASE EXACERBATION PN DR. BHATTI 06-05-18: CHRONIC COPD RISK FACTORS: H&P: PT WAS WITH LONGSTANDING HX OF CHRONIC HYPOXIC RESPIRATORY FAILURE ON OXYGEN SUPPLEMENTATION AT 2-4 LITERS PER MINUTE BY NASAL CANNULA DUE TO COPD. TREATMENT: H&P: O2 SAT 94% ON 4L PER NC, DUONEBS Q4, SOLUMEDROL 40 MG IV Q6 HRS, CONTINUE ROCEPHIN 2GRAMS IV Q24 HRS WITH ADDITIONAL ZITHROMAX 250MG PO DAILY. (This form is maintained as a part of the permanent medical record) 2014 [employer]. All Rights Reserved [email or web address] Office: [phone] [facility]
--- NOTE | 2018-06-06 13:03 | PQF ---
Date: 06-06-18 ATTN: DR. EZEQUIEL BHATTI Please exercise your independent, professional judgment in responding to the clarification form. Clinical indicators are provided on the bottom of this form for your review Please check appropriate box(s): [ ] Protein Calorie Malnutrition: [ ] Mild [ ] Moderate [ ] Severe [ ] Other Malnutrition (please specify) __ [x] Other diagnosis - Pulmonary Cachexia [ ] Unable to determine In addition, please specify: Present on Admission (POA): [ ] Yes [ ] No [ ] Unable to determine CLINICAL INDICATORS - SIGNS / SYMPTOMS / LABS BMI of 16.3 H&P: PAST MEDICAL HISTORY: MODERATE PROTEIN CALORIE MALNUTRITION H&P: SEVERE DECONDITIONING PROJECT SCHEDULER CONSULT 06-05-18: Patient states his appetite has been poor for the past month, has not liked the nursing facility he's been in. Patient reports UBW at 145 lbs 3 months ago.chronic hypoxic respiratory failure with chronic O2 supplementation at 2-3 L,HTN, orthostatic hypotension, history of metabolic encephalopathy, deconditioning with nonambulatory status, major depressive disorder, moderate protein-calorie malnutrition, hernia repair; Noted: muscle wasting to temporal region and clavicle observed by RD, 22% weight loss in 3 months, muscle wasting observed, suspected low intake x1 month RISK FACTORS: PROJECT SCHEDULER CONSULT 06-05-18: Patient states his appetite has been poor for the past month, has not liked the nursing facility he's been in. Patient reports UBW at 145 lbs 3 months ago.chronic hypoxic respiratory failure with chronic O2 supplementation at 2-3 L,HTN , orthostatic hypotension, history of metabolic encephalopathy, deconditioning with nonambulatory status, major depressive disorder, moderate protein-calorie malnutrition, hernia repair; Noted: muscle wasting to temporal region and clavicle observed by RD, 22% weight loss in 3 months, muscle wasting observed, suspected low intake x1 month TREATMENT: PROJECT SCHEDULER CONSULT 06-05-18: 1. Recommend a Low Sodium diet 2. Recommend changing oral supplements to Glucerna TID Moderate Malnutrition (in acute illness) Energy Intake: <75% of estimated energy requirement for > 7 days Weight Loss: 1-2%/1 week; 5%/ 1 month; 7.5%/3 months Other: mild body fat loss; mild muscle mass loss; mild fluid accumulation; Severe Malnutrition (in acute illness) Energy Intake: < 50% of estimated energy requirement for > 5 days Weight Loss: >1-2%/1 week; >5%/1 month; >7.5%/3 months Other: moderate body fat loss; moderate muscle mass loss; moderate- severe fluid accumulation; measurably reduced internet developer strength Moderate Malnutrition (in chronic illness) Energy Intake: <75% of estimated energy requirement for >1 month Weight Loss: 5%/1 month; 7.5%/3 months; 10%/6 months; 20%/1 year Other: mild body fat loss; mild muscle mass loss; mild fluid accumulation Severe Malnutrition (in chronic illness) Energy Intake: <75% of estimated energy requirement for >1 month Weight Loss: >5%/1 month; >7.5%/3 months; >10%/6 months; >20%/1 year Other: severe body fat loss; severe muscle mass loss; severe fluid accumulation ; measurably reduced internet developer strength (This form is maintained as a part of the permanent medical record) 2014 [employer] All Rights Reserved [email or web address] Office: [phone] [facility]ITALCec[facility]
[2018-06-06] MEDS: cefTRIAXone\\ROCEPHIN 2 GM, Admixture Fee 1 EACH in Sodium Chloride 0.9% 100 ML IVPB SCH (14:36)
--- NOTE | 2018-06-06 15:49 | ULT ---
BILATERAL CAROTID DUPLEX ULTRASOUND: HISTORY: Syncope. TECHNIQUE: Real-time color Doppler evaluation of the right and left carotid systems was performed. FINDINGS: This shows some moderate plaque formation, more prominent at the origin of the left internal carotid artery. On the right side, the peak systolic velocities of the common carotid were 74 cm per second. Interna l carotid velocities were 57 cm per second and external carotid velocities were 71 cm per second. Th e left side showed peak systolic velocities of the common carotid of 72 cm per second. Internal jacobo tid velocities were 60 cm per second, and external carotid velocities were 69 cm per second. Vertebral flow is antegrade bilaterally. IMPRESSION: No evidence of hemodynamically significant stenosis of either internal carotid artery. POS: [facility]
[2018-06-06] MEDS: Ibuprofen 600 MG TAB PO PRN (18:05)
--- NOTE | 2018-06-06 20:43 | PDOC.PN ---
- Subjective Encounter Start Date: 06/06/18 Encounter Start Time: 14:15 No major changes. Stable. Not sure he is substantially better. - Objective Resuscitation Status: Resuscitation Status FULL:Full Resuscitation Vital Signs & Weight: Vital Signs (12 hours) Temp Pulse Pulse Resp BP BP BP 06/06/18 16:22 97.6 F 85 22 H 159/83 H 06/06/18 13:47 71 159/86 H 06/06/18 12:25 97.7 F 82 22 H 168/91 H 06/06/18 09:25 97.8 F 75 19 186/100 H Pulse Ox Pulse Ox Pulse Ox Pulse Ox 06/06/18 16:22 93 L 06/06/18 13:47 84 L 91 L 89 L 06/06/18 12:25 93 L 06/06/18 09:25 Weight Admit Weight 113 lb 12.8 oz Weight 107 lb 8 oz I&O: 06/05/18 06/06/18 06/07/18 06:59 06:59 06:59 Intake Total 470 1467 240 Balance 470 1467 240 Result Diagrams: 06/05/18 04:19 06/05/18 04:19 Phys Exam - Physical Examination Constitutional: NAD Tachypneic Neck: no JVD, supple Scattered rales and mild inspiratory wheezes. Dx/Plan (1) UTI (urinary tract infection) Status: Acute Comment: Minimal growth on culture. (2) COPD (chronic obstructive pulmonary disease) Status: Chronic Comment: End stage disease requiring 3-4 lpm of oxygen to maintain sats. Continue nebs, oxygen, tapering dose of steroids. (3) Vascular dementia Code(s): F01.50 - VASCULAR DEMENTIA WITHOUT BEHAVIORAL DISTURBANCE Status: Chronic - Plan * No real evidence of pneumonia. Urine cx basically negative. Focus on treating copd. Discussed with patient's daughter. He is very fragile with respect to his pulmonary status. Difficult to know what the end point is. His dementia makes it challenging to know how he is doing from day to day.
[2018-06-06] MEDS: guaiFENesin ER 600 MG TAB PO SCH (21:39)
[2018-06-07] MEDS: Ibuprofen 600 MG TAB PO PRN (04:19)
[2018-06-07 05:36] LABS: #Lymphocytes 1.5 thou/uL (1.20-3.40); #Monocytes 0.5 thou/uL (0.11-0.59); %Basophils 0.1 % (0.0-1.0); %Eosinophils 0.2 % (0.0-10.0); %Monocytes 5.2 % (0.0-10.0); %Neutrophils 77.5 % (42.0-75.0); Hemoglobin 11.6 g/dL (14.0-18.0); Mean Corpuscular HGB CONC 32.8 g/dL (32.0-36.0); Mean Corpuscular Hemoglobin 35.1 pg (27.0-31.0); Platelet Count 232 thou/uL (130-400); RBC Distribution Width 12.7 % (11.5-14.5); Red Blood Cell (RBC) Count 3.29 mill/uL (4.70-6.10)
[2018-06-07 05:45] LABS: Anion Gap 9 mmol/L (10-20); BUN (Urea Nitrogen) 21 mg/dL (8.4-25.7); Calc. Creatinine Clearance 60 mL/min (70-130); Carbon Dioxide 37 mmol/L (23-31); Chloride 92 mmol/L (98-107); Estimated GFR-MDRD Greater than 90; Glucose 92 mg/dL (83-110); Potassium 3.9 mmol/L (3.5-5.1); Sodium 134 mmol/L (136-145)
[2018-06-07] MEDS: guaiFENesin ER 600 MG TAB PO SCH ×2 (10:03→22:03)
[2018-06-07] MEDS: Saccharomyces boulardii 250 MG CAP PO SCH ×2 (10:03→22:03)
[2018-06-07] MEDS: Famotidine 20 MG TAB PO SCH ×2 (10:03→22:03)
[2018-06-07 13:23] VITALS: BMI 15.0
--- NOTE | 2018-06-07 13:55 | PDOC.PN ---
- Subjective Encounter Start Date: 06/07/18 Encounter Start Time: 08:45 Difficult for the patient to assess his progress as his dementia makes his memory of yesterday challenged. No specific complaints today. - Objective Resuscitation Status: Resuscitation Status FULL:Full Resuscitation Vital Signs & Weight: Vital Signs (12 hours) Temp Pulse Pulse Pulse Resp BP BP 06/07/18 12:00 97.7 F 85 24 H 06/07/18 09:51 88 76 137/68 145/71 H 06/07/18 07:32 98.1 F 82 22 H 06/07/18 07:03 66 24 H 06/07/18 04:23 98 F 95 17 BP BP Pulse Ox 06/07/18 12:00 130/74 97 06/07/18 09:51 06/07/18 07:32 161/75 H 92 L 06/07/18 07:03 95 06/07/18 04:23 152/92 H 91 L Weight Admit Weight 113 lb 12.8 oz Weight 98 lb 12.8 oz I&O: 06/06/18 06/07/18 06/08/18 06:59 06:59 06:59 Intake Total 1467 390 Balance 1467 390 Result Diagrams: 06/07/18 04:19 06/07/18 04:19 Phys Exam - Physical Examination Constitutional: NAD HEENT: PERRLA, oral pharynx no lesions Neck: no nodes Respiratory: no rhonchi diminished breath sounds througout. Scattered rales and minimal wheezes. Cardiovascular: RRR, no significant murmur Gastrointestinal: soft, non-tender, no distention, positive bowel sounds Musculoskeletal: no edema Deviation from normal: Appropriate, but confused Dx/Plan (1) COPD (chronic obstructive pulmonary disease) Status: Chronic Comment: End stage disease requiring 3-4 lpm of oxygen to maintain sats. Continue nebs, oxygen, tapering dose of steroids. (2) UTI (urinary tract infection) Status: Acute Comment: Minimal growth on culture. (3) Vascular dementia Code(s): F01.50 - VASCULAR DEMENTIA WITHOUT BEHAVIORAL DISTURBANCE Status: Chronic - Plan * Very difficult to know the endpoint of care. His exam will always be abnormal and his sat's poor. Suspect he can be discharged as early as tomorrow if his placement is arranged with increased care.
[2018-06-07] MEDS: cefTRIAXone\\ROCEPHIN 2 GM, Admixture Fee 1 EACH in Sodium Chloride 0.9% 100 ML IVPB SCH (14:02)
[2018-06-08] MEDS: guaiFENesin ER 600 MG TAB PO SCH ×2 (10:24→20:48)
[2018-06-08] MEDS: Saccharomyces boulardii 250 MG CAP PO SCH ×2 (10:24→20:49)
[2018-06-08] MEDS: Famotidine 20 MG TAB PO SCH ×2 (10:24→20:49)
[2018-06-08] MEDS ORDERED: PROPOFOL 40 ML ONE (14:43)
[2018-06-08] MEDS: cefTRIAXone\\ROCEPHIN 2 GM, Admixture Fee 1 EACH in Sodium Chloride 0.9% 100 ML IVPB SCH (15:09)
--- NOTE | 2018-06-08 17:04 | PDOC.PN ---
- Subjective Encounter Start Date: 06/08/18 Encounter Start Time: 14:00 Feels ok. No complaints. Daughter reports he was pulling at IV last night, but better today. - Objective Resuscitation Status: Resuscitation Status FULL:Full Resuscitation Vital Signs & Weight: Vital Signs (12 hours) Temp Pulse Resp BP Pulse Ox 06/08/18 15:16 97.7 F 84 17 98/59 L 96 06/08/18 12:00 97.8 F 87 18 102/79 95 06/08/18 08:00 98.1 F 87 19 109/81 94 L Weight Admit Weight 113 lb 12.8 oz Weight 98 lb 12.8 oz I&O: 06/07/18 06/08/18 06/09/18 06:59 06:59 06:59 Intake Total 390 830 240 Balance 390 830 240 Result Diagrams: 06/07/18 04:19 06/07/18 04:19 Phys Exam - Physical Examination Constitutional: NAD Neck: no JVD, supple Respiratory: wheezing present Scattered rales Cardiovascular: RRR, no significant murmur Gastrointestinal: soft, non-tender, no distention Musculoskeletal: no edema Psychiatric: A&O x 3 Dx/Plan (1) COPD (chronic obstructive pulmonary disease) Status: Chronic Comment: End stage disease requiring 3-4 lpm of oxygen to maintain sats. Continue nebs, oxygen, tapering dose of steroids. (2) UTI (urinary tract infection) Status: Acute Comment: Minimal growth on culture. No specific treatment warranted. (3) Vascular dementia Code(s): F01.50 - VASCULAR DEMENTIA WITHOUT BEHAVIORAL DISTURBANCE Status: Chronic - Plan * anticipated discharge today, but could not get the transportation to the facility arranged, so will aim for the morning. Discussed with the patient's daughter in detail.
[2018-06-08] MEDS: Ibuprofen 600 MG TAB PO PRN (23:41)
[2018-06-09] MEDS: guaiFENesin ER 600 MG TAB PO SCH (09:11)
[2018-06-09] MEDS: Saccharomyces boulardii 250 MG CAP PO SCH (09:11)
[2018-06-09] MEDS: Famotidine 20 MG TAB PO SCH (09:11)
[2018-06-09 10:35] VITALS: BP 155/82; TEMP 97.9
== END 2018-06-09 10:30 | DRG 189 ==
LOC: ERS 07:53 → ERHOLD 11:14 → 2NO 15:59
PROVIDERS: ADMIT Family Medicine; ATTEND Family Medicine
DX: J96.21 Acute and chronic respiratory failure with hypoxia (principal); J44.1 Chronic obstructive pulmonary disease with (acute) exacerbation; N39.0 Urinary tract infection, site not specified; R64 Cachexia; Z68.1 Body mass index [BMI] 19.9 or less, adult; J96.22 Acute and chronic respiratory failure with hypercapnia; F01.50 Vascular dementia, unspecified severity, without behavioral disturbance, psychotic disturbance, mood disturbance, and anxiety; I10 Essential (primary) hypertension; F41.9 Anxiety disorder, unspecified; F32.9 Major depressive disorder, single episode, unspecified; Z88.2 Allergy status to sulfonamides; Z91.013 Allergy to seafood
CPT/HCPCS: 36415; 71045; 80048; 80053; 81003; 81015; 82553; 82805; 83880; 84484; 85007; 85025; 85027; 87040; 87086; 93005; 93306; 93880; 94640; 96361; 96365; A4216; G8978-GP-CM; G8979-GP-CL; G8996-GN-CL; G8997-GN-CK; J0360; J0696; J2704; J2920; J7050; J7506; J7620